=== PATIENT | female | born 1955 | race Caucasian/White ===

== ENCOUNTER 2017-03-09 17:19 | Inpatient (IN) | payer OTHER ==
[2017-03-09 17:31] VITALS: BP 138/95; PULSE 103; RESP 20; TEMP 97.7; O2SAT 96
[2017-03-09] MEDS ORDERED: SODIUM CHLOR 0.9% 1000 ML INJ 1,000 ML IV SCH (17:35)
[2017-03-09] MEDS ORDERED: ONDANSETRON HCL 4 MG/2 ML VIAL IVP ONE (17:45)
[2017-03-09] MEDS ORDERED: SODIUM CHLORIDE 0.9% FLUSH 10 ML FLUSH IV FLUSH PRN ×2 (17:45→20:00)
[2017-03-09] MEDS ORDERED: MORPHINE SULFATE 2 MG/ML INJ IV PUSH ONE (17:45)
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
[2017-03-09 18:18] LABS: AUTOMATED NEUTROPHIL # 21.2 TH/MM3 (1.8-7.7); BASOPHIL # 0.1 TH/MM3 (0-0.2); BASOPHIL % 0.3 % (0.0-2.0); EOSINOPHIL % 0.2 % (0.0-4.0); HEMATOCRIT 42.3 % (35.0-46.0); HEMOGLOBIN 14.4 GM/DL (11.6-15.3); LYMPH % 6.3 % (9.0-44.0); LYMPHOCYTE # 1.5 TH/MM3 (1.0-4.8); MEAN CELL VOLUME 87.1 FL (80.0-100.0); MEAN CORPUSCULAR HEMOGLOBIN 29.7 PG (27.0-34.0); MEAN CORPUSCULAR HGB CONC 34.1 % (32.0-36.0); MEAN PLATELET VOLUME 9.1 FL (7.0-11.0); MONO % 3.7 % (0.0-8.0); MONOCYTE # 0.9 TH/MM3 (0-0.9); NEUT % 89.5 % (16.0-70.0); PLATELET COUNT 295 TH/MM3 (150-450); RED BLOOD COUNT 4.86 MIL/MM3 (4.00-5.30); RED CELL DISTRIBUTION WIDTH 12.9 % (11.6-17.2); WHITE BLOOD COUNT 23.7 TH/MM3 (4.0-11.0)
[2017-03-09 18:26] LABS: PROTHROMBIN TIME - PATIENT 10.3 SEC (9.8-11.6)
[2017-03-09 18:51] LABS: ALT (GPT) 37 U/L (10-53)
[2017-03-09 18:53] LABS: ALKALINE PHOSPHATASE 132 U/L (45-117); TOTAL BILIRUBIN ADULT 0.4 MG/DL (0.2-1.0); TOTAL PROTEIN 7.5 GM/DL (6.4-8.2)
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
[2017-03-09 19:00] LABS: ALBUMIN 3.5 GM/DL (3.4-5.0); AST (GOT) 43 U/L (15-37); BICARBONATE 24.2 MEQ/L (21.0-32.0); BLOOD UREA NITROGEN 11 MG/DL (7-18); CALCIUM 8.4 MG/DL (8.5-10.1); CHLORIDE 105 MEQ/L (98-107); CREATININE 0.87 MG/DL (0.50-1.00); GLOMERULAR FILTRATION RATE 66 ML/MIN (>89); GLUCOSE,RANDOM 217 MG/DL (74-106); LIPASE 214 U/L (73-393); SODIUM (NA) 138 MEQ/L (136-145)
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
[2017-03-09 19:28] LABS: BILIRUBIN, URINE NEG (NEG); BLOOD, URINE MOD (NEG); GLUCOSE,URINE TRACE mg/dL (NEG); HYALINE CAST, URINE 3 /lpf (RARE); KETONE, URINE 10 mg/dL (NEG); MUCUS URINE FEW /lpf (OCC); NITRITE,URINE NEG (NEG); PH, URINE 5.5 (5.0-8.5); URINE COLOR YELLOW (YELLW/STRAW); URINE LEUKOCYTE ESTERASE NEG (NEG)
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
[2017-03-09 19:47] VITALS: BP 157/77; PULSE 97; RESP 16; O2SAT 94
[2017-03-09] MEDS ORDERED: MORPHINE SULFATE 2 MG/ML INJ IV PUSH PRN (20:00)
[2017-03-09] MEDS ORDERED: ONDANSETRON HCL 4 MG/2 ML VIAL IV PUSH PRN (20:00)
[2017-03-09] MEDS ORDERED: NALOXONE HCL 0.4 MG/ML AMP IV PUSH PRN ×2 (20:00→22:00)
[2017-03-09] MEDS ORDERED: oxyCODONE/ACETAMINOPHEN 5 MG/325 MG TAB PO PRN (20:00)
[2017-03-09] MEDS ORDERED: Post-op Orders (for Pharmacy) XX ONE (20:00)
[2017-03-09] MEDS: SODIUM CHLOR 0.9% 1000 ML INJ 1,000 ML IV SCH (20:17)
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
[2017-03-09 20:30] VITALS: BP 135/82; PULSE 98; RESP 24; TEMP 98.6; O2SAT 95
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
[2017-03-09] MEDS ORDERED: DOCUSATE SODIUM 100 MG CAP PO SCH (21:00)
[2017-03-09 22:00] VITALS: PULSE 98
[2017-03-09] MEDS: PCA - TOTAL MG MORPHINE DELIVERED PER SHIFT SCH (22:00)
[2017-03-09] MEDS ORDERED: LACTULOSE SYRUP 20 GM/30 ML CUP PO PRN (22:00)
[2017-03-09] MEDS ORDERED: diphenhydrAMINE HCL 50 MG/ML VIAL IV PUSH PRN (22:00)
[2017-03-09 22:29] VITALS: O2SAT 98
[2017-03-09] MEDS: MORPHINE SULFATE 30 MG/30 ML PCA IV SCH (22:51)
[2017-03-09] MEDS: FAMOTIDINE 20 MG TAB PO SCH (22:52)
[2017-03-09] MEDS: SODIUM CHLORIDE 0.9% FLUSH 10 ML FLUSH IV FLUSH SCH (22:53)
[2017-03-09] MEDS: METHOCARBAMOL 500 MG TAB PO SCH (22:53)
[2017-03-10] VITALS (12 sets, daily range): BP systolic 111–140; BP diastolic 56–85; PULSE 87–96; RESP 17–28; TEMP 97.2–98.3; O2SAT 94–99
[2017-03-10] MEDS: SODIUM CHLOR 0.9% 1000 ML INJ 1,000 ML IV SCH ×2 (04:53→15:46)
[2017-03-10 05:24] LABS: AUTOMATED NEUTROPHIL # 6.4 TH/MM3 (1.8-7.7); BASOPHIL % 0.4 % (0.0-2.0); EOSINOPHIL % 0.1 % (0.0-4.0); HEMATOCRIT 35.7 % (35.0-46.0); HEMOGLOBIN 12.2 GM/DL (11.6-15.3); LYMPH % 16.1 % (9.0-44.0); LYMPHOCYTE # 1.4 TH/MM3 (1.0-4.8); MEAN CELL VOLUME 87.2 FL (80.0-100.0); MEAN CORPUSCULAR HEMOGLOBIN 29.8 PG (27.0-34.0); MEAN CORPUSCULAR HGB CONC 34.2 % (32.0-36.0); MEAN PLATELET VOLUME 8.6 FL (7.0-11.0); MONO % 8.5 % (0.0-8.0); MONOCYTE # 0.7 TH/MM3 (0-0.9); NEUT % 74.9 % (16.0-70.0); PLATELET COUNT 206 TH/MM3 (150-450); RED BLOOD COUNT 4.09 MIL/MM3 (4.00-5.30); RED CELL DISTRIBUTION WIDTH 12.7 % (11.6-17.2); WHITE BLOOD COUNT 8.6 TH/MM3 (4.0-11.0)
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
[2017-03-10 05:40] LABS: BICARBONATE 26.4 MEQ/L (21.0-32.0); CALCIUM 7.6 MG/DL (8.5-10.1); CREATININE 0.81 MG/DL (0.50-1.00)
[2017-03-10] MEDS: PCA - TOTAL MG MORPHINE DELIVERED PER SHIFT SCH ×3 (06:00→21:47)
[2017-03-10] MEDS: METHOCARBAMOL 500 MG TAB PO SCH ×3 (06:23→21:49)
[2017-03-10] MEDS: RESP: ALBUTEROL 2.5 MG/IPRATROPIUM 0.5 MG NEB (SCH) NEB ×4 (08:20→21:01)
[2017-03-10] MEDS: FAMOTIDINE 20 MG TAB PO SCH ×2 (08:59→21:46)
[2017-03-10] MEDS: POLYETHYLENE GLYCOL 17 GM PKG PO SCH (08:59)
[2017-03-10] MEDS: DOCUSATE SODIUM 50 MG/SENNA 8.6 MG TAB PO SCH ×2 (08:59→21:46)
[2017-03-10] MEDS: SODIUM CHLORIDE 0.9% FLUSH 10 ML FLUSH IV FLUSH SCH ×2 (09:00→21:46)
[2017-03-10] MEDS: LIDOCAINE HCL 5% PATCH T-DERMAL SCH (09:00)
[2017-03-10] MEDS ORDERED: LIDOCAINE HCL 1% 50 ML VIAL INFIL ONE (09:30)
[2017-03-10] MEDS: MORPHINE SULFATE 30 MG/30 ML PCA IV SCH (11:22)
--- NOTE | 2017-03-10 11:24 | RADRPT ---
EXAM DATE/TIME: 03/10/2017 10:29 [facility] COMPARISON: CHEST SINGLE AP, March 10, 2017, 4:05. INDICATIONS : Left sided chest tube placement MEDICAL HISTORY : None. SURGICAL HISTORY : None. ENCOUNTER: Initial ACUITY: 1 day PAIN SCORE: Non-responsive. LOCATION: Left chest FINDINGS: Single AP view of the chest. Left-sided chest tubes in place. No evidence of pneumothorax. Increased diffuse left lung opacity. Cardiomediastinal silhouette unchanged. CONCLUSION: Study chest 2. No evidence of pneumothorax. Increased diffuse left lung opacity. Rajinder Sorensen MD on March 10, 2017 at 11:21 Board Certified Radiologist. This report was verified electronically.
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
--- NOTE | 2017-03-10 15:27 | EKG ---
Date Performed: 03/09/2017 Time Performed: 17:57:23 PTAGE: 61 years EKG: SINUS TACHYCARDIA POSSIBLE LEFT ATRIAL ENLARGEMENT ABNORMAL RHYTHM ECG NO PREVIOUS TRACING DOCTOR: Tao Reyes Interpretating Date/Time 03/10/2017 15:26:41
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
[2017-03-10] MEDS: REMOVE OLD PATCH T-DERMAL SCH (21:46)
--- NOTE | 2017-03-10 22:23 | MP ---
cc: ARIEL LAST MD DATE OF SURGERY 03/10/17 PREOPERATIVE DIAGNOSIS Left hemopneumothorax POSTOPERATIVE DIAGNOSIS Left hemopneumothorax PROCEDURE Left chest tube placement. SURGEON Jorge Last MD ANESTHESIA 1% Xylocaine ESTIMATED BLOOD LOSS Minimal. PROCEDURE IN DETAIL The patient prepped and draped usual fashion. Area infiltrated with 1% Xylocaine and incision made in mid axillary line about fifth intercostal space deepened down with a hemostat, lung blew up a little more and then 28-Uzbek chest tube placed. Suture place with 0-silk connected to Pleurovac. The patient tolerated the procedure well. A chest x-ray obtained. Ariel ACUÑA/ /11:20 AM /9:59 PM
[2017-03-11] VITALS (8 sets, daily range): BP systolic 136–171; BP diastolic 68–90; PULSE 92–101; RESP 18–19; TEMP 95.8–98.3; O2SAT 92–99
[2017-03-11] MEDS: SODIUM CHLOR 0.9% 1000 ML INJ 1,000 ML IV SCH (02:05)
--- NOTE | 2017-03-11 05:44 | RADRPT ---
EXAM DATE/TIME: 03/11/2017 04:29 [facility] COMPARISON: CHEST SINGLE AP, March 10, 2017, 10:29. INDICATIONS : Hemothorax. MEDICAL HISTORY : None. SURGICAL HISTORY : None. ENCOUNTER: Subsequent ACUITY: 3 days PAIN SCORE: Non-responsive. LOCATION: Bilateral chest FINDINGS: Left chest tube remains in place. No pneumothorax. Improved aeration of the left lung compared to the prior study. Right lung remains grossly clear. Heart size is stable. Bony structures are stable. CONCLUSION: Improved aeration left lung. No pneumothorax. Herbert Lui MD on March 11, 2017 at 5:40 Board Certified Radiologist. This report was verified electronically.
[2017-03-11] MEDS: METHOCARBAMOL 500 MG TAB PO SCH ×3 (05:48→22:48)
[2017-03-11] MEDS: PCA - TOTAL MG MORPHINE DELIVERED PER SHIFT SCH ×3 (05:48→22:49)
[2017-03-11 06:21] LABS: HEMOGLOBIN 10.8 GM/DL (11.6-15.3)
[2017-03-11] MEDS: FAMOTIDINE 20 MG TAB PO SCH ×2 (07:43→22:48)
[2017-03-11] MEDS: DOCUSATE SODIUM 50 MG/SENNA 8.6 MG TAB PO SCH ×2 (07:43→22:48)
[2017-03-11] MEDS: LIDOCAINE HCL 5% PATCH T-DERMAL SCH (07:43)
[2017-03-11] MEDS: SODIUM CHLORIDE 0.9% FLUSH 10 ML FLUSH IV FLUSH SCH ×2 (07:44→22:48)
[2017-03-11] MEDS: POLYETHYLENE GLYCOL 17 GM PKG PO SCH (07:44)
[2017-03-11] MEDS: RESP: ALBUTEROL 2.5 MG/IPRATROPIUM 0.5 MG NEB (SCH) NEB ×4 (08:00→19:57)
[2017-03-11] MEDS ORDERED: cloNIDine HCL 0.1 MG TAB PO ONE (08:30)
[2017-03-11 09:26] LABS: HEMOGLOBIN A1C 8.4 % (4.3-6.0)
--- NOTE | 2017-03-11 10:07 | PD.ORT.PN ---
Subjective Subjective Remarks Chest pain She was able to sit on edge of bed with therapist present Objective Vitals Vital Signs Date Time Temp Pulse Resp B/P (MAP) Pulse Ox O2 Delivery O2 Flow Rate FiO2 03/11/17 08:04 Nasal Cannula 2.00 03/11/17 07:45 96.2 101 19 171/90 (117) 92 03/11/17 05:48 18 03/11/17 03:45 98.3 97 18 159/81 (107) 93 03/11/17 00:15 97.3 98 18 139/68 (91) 93 03/10/17 21:47 19 03/10/17 21:01 95 Nasal Cannula 2.00 03/10/17 20:10 97.2 91 17 140/66 (90) 94 03/10/17 15:56 Nasal Cannula 4.00 03/10/17 15:56 98.3 96 18 135/78 (97) 97 03/10/17 14:00 98.1 91 28 126/66 (86) 97 03/10/17 14:00 91 03/10/17 14:00 22 03/10/17 12:00 91 03/10/17 12:00 91 28 128/67 (87) 97 03/10/17 11:22 22 I/O 03/10/17 03/10/17 03/10/17 03/11/17 03/11/17 03/11/17 07:00 15:00 23:00 07:00 15:00 23:00 Intake Total 1070 ml 120 ml 240 ml Output Total 400 ml 250 ml 518 ml 282 ml 20 ml Balance 670 ml -250 ml -398 ml -42 ml -20 ml Intake Oral 200 ml 120 ml 240 ml IV Total 870 ml Output Urine Total 400 ml 250 ml 400 ml 200 ml Stool Total 0 ml Chest Tube Drainage Total 118 ml 82 ml 20 ml # Bowel Movements 0 0 Result Diagram: 03/11/17 0528 03/10/17 0453 Imaging Last 24 hours Impressions Chest X-Ray 03/11/17 0600 Signed Impressions: Service Date/Time: Saturday, March 11, 2017 04:29 - CONCLUSION: Improved aeration left lung. No pneumothorax. Herbert Lui MD Objective Remarks Left clavicle Moderate swelling moderate tenderness elbow and wrist benign Pelvis tender posterior left scaral region NVI Assessment & Plan Problem List: (1) Closed left scapular fracture ICD Codes: S42.102A - Fracture of unspecified part of scapula, left shoulder, initial encounter for closed fracture Plan: Conservative management non weight bearing left upper extremity Monitor Follow up in office in 3 weeks (2) Closed left clavicular fracture ICD Codes: S42.002A - Fracture of unspecified part of left clavicle, initial encounter for closed fracture Plan: Conservative management non weight bearing left upper extremity Monitor Follow up in office in 3 weeks (3) Multiple pelvic fractures ICD Codes: S32.810A - Multiple fractures of pelvis with stable disruption of pelvic ring, initial encounter for closed fracture Status: Acute Qualifiers: Qualified Codes: S32.82XA - Multiple fractures of pelvis without disruption of pelvic ring, initial encounter for closed fracture Plan: Conservative management Weight bearing as tolerated Monitor Follow up in office in 3 weeks Tiago Wells MD Mar 11, 2017 10:07
[2017-03-11] MEDS: MORPHINE SULFATE 30 MG/30 ML PCA IV SCH (11:24)
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
[2017-03-11] MEDS ORDERED: MORPHINE SULFATE 30 MG/30 ML PCA IV SCH (14:15)
[2017-03-11] MEDS: ENOXAPARIN SODIUM 40 MG/0.4 ML SYRINGE SQ SCH (14:25)
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
[2017-03-11] MEDS: REMOVE OLD PATCH T-DERMAL SCH (22:48)
[2017-03-12] VITALS (7 sets, daily range): BP systolic 142–170; BP diastolic 83–92; PULSE 81–101; RESP 15–18; TEMP 96.3–97.9; O2SAT 91–98
[2017-03-12 06:17] LABS: HEMATOCRIT 32.9 % (35.0-46.0); HEMOGLOBIN 11.1 GM/DL (11.6-15.3); MEAN CELL VOLUME 87.1 FL (80.0-100.0); MEAN CORPUSCULAR HEMOGLOBIN 29.4 PG (27.0-34.0); MEAN CORPUSCULAR HGB CONC 33.7 % (32.0-36.0); MEAN PLATELET VOLUME 9.1 FL (7.0-11.0); PLATELET COUNT 189 TH/MM3 (150-450); RED BLOOD COUNT 3.78 MIL/MM3 (4.00-5.30); RED CELL DISTRIBUTION WIDTH 12.6 % (11.6-17.2); WHITE BLOOD COUNT 9.8 TH/MM3 (4.0-11.0)
[2017-03-12] MEDS: METHOCARBAMOL 500 MG TAB PO SCH ×3 (06:29→20:13)
[2017-03-12] MEDS: PCA - TOTAL MG MORPHINE DELIVERED PER SHIFT SCH (06:29)
--- NOTE | 2017-03-12 07:13 | RADRPT ---
EXAM DATE/TIME: 03/12/2017 05:23 [facility] COMPARISON: CHEST SINGLE AP, March 11, 2017, 4:29. INDICATIONS : Short of breath, left chest pain, evaluate for hemothorax MEDICAL HISTORY : hemothorax, clavicle fracture SURGICAL HISTORY : chest tube ENCOUNTER: Subsequent ACUITY: 4 - 6 days PAIN SCORE: 10/10 LOCATION: Bilateral chest FINDINGS: Left chest tube remains in place. No evidence of pneumothorax. Continues to be pulmonary venous conge stion in both lung bates. Otherwise no significant changes are demonstrated compared to the prior [facility]. The heart size is stable. Multiple stable left-sided rib fractures. Stable left clavicular fract ure. CONCLUSION: 1. No evidence of pneumothorax. 2. Pulmonary venous congestion. 3. No significant changes. Herbert Lui MD on March 12, 2017 at 7:11 Board Certified Radiologist. This report was verified electronically.
[2017-03-12] MEDS: FAMOTIDINE 20 MG TAB PO SCH ×2 (08:26→19:59)
[2017-03-12] MEDS: SODIUM CHLORIDE 0.9% FLUSH 10 ML FLUSH IV FLUSH SCH ×2 (08:26→19:57)
[2017-03-12] MEDS: LIDOCAINE HCL 5% PATCH T-DERMAL SCH (08:26)
[2017-03-12] MEDS: POLYETHYLENE GLYCOL 17 GM PKG PO SCH (08:27)
[2017-03-12] MEDS: DOCUSATE SODIUM 50 MG/SENNA 8.6 MG TAB PO SCH ×2 (08:27→19:58)
[2017-03-12] MEDS: RESP: ALBUTEROL 2.5 MG/IPRATROPIUM 0.5 MG NEB (SCH) NEB ×4 (08:51→20:00)
[2017-03-12] MEDS: metFORMIN HCL 500 MG TAB PO SCH ×2 (10:20→17:00)
[2017-03-12] MEDS ORDERED: ATENOLOL 25 MG TAB PO SCH (10:30)
[2017-03-12] MEDS ORDERED: cloNIDine HCL 0.1 MG TAB PO PRN (10:45)
[2017-03-12] MEDS ORDERED: MORPHINE SULFATE 4 MG/ML INJ IV PUSH PRN (11:30)
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
[2017-03-12] MEDS: ENOXAPARIN SODIUM 40 MG/0.4 ML SYRINGE SQ SCH (12:25)
[2017-03-12] MEDS: VALPROIC ACID 250 MG CAP PO SCH ×2 (12:25→19:58)
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
[2017-03-12] MEDS ORDERED: DEXTROSE 50% IN WATER 50 ML VIAL(D50) IV PUSH PRN ×2 (14:30→18:45)
[2017-03-12] MEDS ORDERED: GLUCAGON 1 MG/ML VIAL OTHER PRN ×2 (14:30→18:45)
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
--- NOTE | 2017-03-12 19:18 | PD.ORT.PN ---
Subjective Subjective Remarks Patient c/o rib and pelvic pain. Objective Vitals Vital Signs Date Time Temp Pulse Resp B/P (MAP) Pulse Ox O2 Delivery O2 Flow Rate FiO2 03/12/17 16:37 95 Nasal Cannula 2.00 03/12/17 15:37 96.3 84 16 170/91 (117) 95 03/12/17 11:17 96.6 96 15 167/89 (115) 91 03/12/17 08:51 93 Nasal Cannula 2.00 03/12/17 08:00 96.6 81 18 163/92 (115) 92 03/12/17 08:00 Nasal Cannula 2.00 03/12/17 06:29 18 03/12/17 04:25 96.9 93 18 147/87 (107) 96 03/12/17 00:10 97.9 101 18 142/83 (102) 98 03/11/17 22:49 18 03/11/17 20:45 98.1 96 18 150/82 (104) 99 03/11/17 19:59 98 Nasal Cannula 2.00 I/O 03/11/17 03/11/17 03/11/17 03/12/17 03/12/17 03/12/17 07:00 15:00 23:00 07:00 15:00 23:00 Intake Total 240 ml 550 ml 1440 ml 120 ml Output Total 282 ml 370 ml 430 ml 300 ml 55 ml Balance -42 ml 180 ml 1010 ml -180 ml -55 ml Intake Oral 240 ml 550 ml 240 ml 120 ml IV Total 1200 ml Output Urine Total 200 ml 350 ml 400 ml 300 ml Chest Tube Drainage Total 82 ml 20 ml 30 ml 0 ml 55 ml # Bowel Movements 0 0 0 1 Result Diagram: 03/12/17 0524 03/10/17 0453 Imaging Last 24 hours Impressions Chest X-Ray 03/11/17 0600 Signed Impressions: Service Date/Time: Saturday, March 11, 2017 04:29 - CONCLUSION: Improved aeration left lung. No pneumothorax. Herbert Lui MD Objective Remarks Left clavicle Moderate swelling moderate tenderness elbow and wrist benign Pelvis tender posterior left scaral region NVI Assessment & Plan Problem List: (1) Closed left scapular fracture ICD Codes: S42.102A - Fracture of unspecified part of scapula, left shoulder, initial encounter for closed fracture Plan: Conservative management non weight bearing left upper extremity Monitor Follow up in office in 3 weeks (2) Closed left clavicular fracture ICD Codes: S42.002A - Fracture of unspecified part of left clavicle, initial encounter for closed fracture Plan: Conservative management non weight bearing left upper extremity Monitor Follow up in office in 3 weeks (3) Multiple pelvic fractures ICD Codes: S32.810A - Multiple fractures of pelvis with stable disruption of pelvic ring, initial encounter for closed fracture Status: Acute Qualifiers: Qualified Codes: S32.82XA - Multiple fractures of pelvis without disruption of pelvic ring, initial encounter for closed fracture Plan: Pain management Conservative management Weight bearing as tolerated Monitor Follow up in office in 3 weeks Justin Garsia Mar 12, 2017 19:18
[2017-03-12] MEDS: ATENOLOL 25 MG TAB PO SCH (19:58)
[2017-03-12] MEDS: REMOVE OLD PATCH T-DERMAL SCH (20:13)
[2017-03-12] MEDS: INSULIN ASPART SUPPLEMENTAL SCALE SQ SCH (20:13)
[2017-03-13] VITALS (8 sets, daily range): BP systolic 120–153; BP diastolic 69–79; PULSE 63–73; RESP 16–20; TEMP 95.5–97.4; O2SAT 92–97
[2017-03-13] MEDS: METHOCARBAMOL 500 MG TAB PO SCH ×3 (06:01→20:48)
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
[2017-03-13] MEDS: RESP: ALBUTEROL 2.5 MG/IPRATROPIUM 0.5 MG NEB (SCH) NEB ×4 (07:44→19:50)
[2017-03-13] MEDS: INSULIN ASPART SUPPLEMENTAL SCALE SQ SCH ×4 (08:00→20:48)
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
[2017-03-13] MEDS: LIDOCAINE HCL 5% PATCH T-DERMAL SCH (09:00)
[2017-03-13] MEDS: SODIUM CHLORIDE 0.9% FLUSH 10 ML FLUSH IV FLUSH SCH ×2 (09:00→20:48)
[2017-03-13] MEDS: DOCUSATE SODIUM 50 MG/SENNA 8.6 MG TAB PO SCH ×2 (09:00→20:47)
[2017-03-13] MEDS: metFORMIN HCL 500 MG TAB PO SCH ×2 (09:00→17:25)
[2017-03-13] MEDS: POLYETHYLENE GLYCOL 17 GM PKG PO SCH (09:00)
[2017-03-13] MEDS: FAMOTIDINE 20 MG TAB PO SCH ×2 (09:00→20:48)
[2017-03-13] MEDS: ATENOLOL 25 MG TAB PO SCH ×2 (09:00→20:48)
[2017-03-13] MEDS: VALPROIC ACID 250 MG CAP PO SCH ×2 (09:00→20:47)
[2017-03-13] MEDS ORDERED: POLY17S PO (09:14)
[2017-03-13] MEDS ORDERED: PERI PO (09:14)
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
[2017-03-13] MEDS: ENOXAPARIN SODIUM 40 MG/0.4 ML SYRINGE SQ SCH (12:11)
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
[2017-03-13] MEDS ORDERED: IOHEXOL 350 MG/ML 10 ML VIAL (for RAD DIAG) IVCONTRAST ONE (16:52)
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
--- NOTE | 2017-03-13 17:57 | RADRPT ---
EXAM DATE/TIME: 03/13/2017 16:41 [facility] COMPARISON: US CAROTID ARTERIES, March 12, 2017, 14:13. INDICATIONS : Short of breath, carotid stenosis. IV CONTRAST: 79 cc Omnipaque 350 (iohexol) IV RADIATION DOSE: 26.55 CTDIvol (mGy) MEDICAL HISTORY : Hypertension. SURGICAL HISTORY : None. ENCOUNTER: Initial ACUITY: 1 day PAIN SCALE: 2/10 LOCATION: Bilateral cranial Elevated flow velocities and ICA/CCA ratios have been found to correlate with increased degrees of vessel stenosis, calculated as percentage of diameter relative to a normal segment of distal ICA/CCA. TECHNIQUE: Volumetric scanning was performed using a multirow detector CT scanner. The data was post processed with a variety of visualization algorithms including full-volume maximum intensity projection, multip lanar sliding thin-slab reformation, curved-planar reformation, and surface-rendering techniques. Us ing automated exposure control and adjustment of the mA and/or kV according to patient size, radiatio n dose was kept as low as reasonably achievable to obtain optimal diagnostic quality images. DICOM f ormat image data is available electronically for review and comparison. FINDINGS: At the lung apices, left effusion and contusion or atelectasis present with chest tube in place. Mini mal subpleural air. AORTIC ARCH: There is a three-vessel origin of the great vessels from the aorta. No evidence of ostial narrowing. RIGHT CAROTID: The common carotid artery is intact. The carotid bulb has a normal configuration without ulceration o r narrowing. The internal carotid artery lumen is smooth without stenosis. The external carotid clarissa ry is intact. LEFT CAROTID: Mild eccentric plaquing at the carotid bulb and left ICA origin with approximately 30% stenotic narro wing at the ICA origin. Beyond this, the ICA is normal in caliber and appearance to the skull base. VERTEBRALS: The vertebral arteries have a symmetric diameter. No stenotic lesions are seen. CONCLUSION: Mild left carotid bifurcation stenosis. No evidence of acute vascular injury. Zohaib Tarango MD on March 13, 2017 at 17:49 Board Certified Radiologist. This report was verified electronically.
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
[2017-03-13] MEDS: INSULIN DETEMIR 100 UNITS/ML VIAL SQ SCH (20:48)
[2017-03-13] MEDS: REMOVE OLD PATCH T-DERMAL SCH (20:49)
[2017-03-14 00:10] VITALS: BP 128/66; PULSE 75; RESP 18; TEMP 97; O2SAT 92
[2017-03-14 03:15] VITALS: BP 138/71; PULSE 64; RESP 18; TEMP 97; O2SAT 92
[2017-03-14] MEDS: METHOCARBAMOL 500 MG TAB PO SCH ×3 (05:25→20:37)
--- NOTE | 2017-03-14 06:49 | RADRPT ---
EXAM DATE/TIME: 03/14/2017 05:32 [facility] COMPARISON: CHEST SINGLE AP, March 13, 2017, 5:35. INDICATIONS : Shortness of breath. MEDICAL HISTORY : None. SURGICAL HISTORY : None. ENCOUNTER: Subsequent ACUITY: 1 week PAIN SCORE: Non-responsive. LOCATION: Bilateral chest FINDINGS: There is a left chest tube in place. A pneumothorax is not seen. The heart size is normal. There is i ncreased density at the bases bilaterally being worse on the left. There is a left clavicle fracture and left-sided rib fracture seen. CONCLUSION: 1. Left chest tube without a pneumothorax seen. 2. Findings there is consolidation or atelectasis being worse than the left. 3. Left clavicle and left rib fractures. Zohaib Sexton MD on March 14, 2017 at 6:45 Board Certified Radiologist. This report was verified electronically.
[2017-03-14 07:31] LABS: AUTOMATED NEUTROPHIL # 4.6 TH/MM3 (1.8-7.7); BASOPHIL % 0.2 % (0.0-2.0); EOSINOPHIL % 0.3 % (0.0-4.0); HEMATOCRIT 31.8 % (35.0-46.0); HEMOGLOBIN 10.7 GM/DL (11.6-15.3); LYMPH % 20.2 % (9.0-44.0); LYMPHOCYTE # 1.4 TH/MM3 (1.0-4.8); MEAN CELL VOLUME 86.2 FL (80.0-100.0); MEAN CORPUSCULAR HEMOGLOBIN 29.1 PG (27.0-34.0); MEAN CORPUSCULAR HGB CONC 33.8 % (32.0-36.0); MONO % 13.1 % (0.0-8.0); MONOCYTE # 0.9 TH/MM3 (0-0.9); NEUT % 66.2 % (16.0-70.0); PLATELET COUNT 296 TH/MM3 (150-450); RED BLOOD COUNT 3.68 MIL/MM3 (4.00-5.30); RED CELL DISTRIBUTION WIDTH 13.2 % (11.6-17.2)
[2017-03-14 07:52] LABS: BICARBONATE 24.6 MEQ/L (21.0-32.0); CREATININE 0.42 MG/DL (0.50-1.00); MAGNESIUM 2.2 MG/DL (1.5-2.5); PHOSPHORUS 2.5 MG/DL (2.5-4.9)
[2017-03-14 07:54] LABS: CHOLESTEROL/ HDL RATIO 4.73 RATIO
[2017-03-14 08:00] VITALS: BP 124/69; PULSE 69; RESP 18; TEMP 96.8; O2SAT 92
[2017-03-14] MEDS: INSULIN ASPART SUPPLEMENTAL SCALE SQ SCH ×4 (08:00→20:39)
[2017-03-14] MEDS: LIDOCAINE HCL 5% PATCH T-DERMAL SCH (08:07)
[2017-03-14] MEDS: VALPROIC ACID 250 MG CAP PO SCH ×2 (08:07→20:38)
[2017-03-14] MEDS: ATENOLOL 25 MG TAB PO SCH ×2 (08:07→20:38)
[2017-03-14] MEDS: POLYETHYLENE GLYCOL 17 GM PKG PO SCH (08:07)
[2017-03-14] MEDS: metFORMIN HCL 500 MG TAB PO SCH ×2 (08:07→18:00)
[2017-03-14] MEDS: FAMOTIDINE 20 MG TAB PO SCH ×2 (08:07→20:38)
[2017-03-14] MEDS: DOCUSATE SODIUM 50 MG/SENNA 8.6 MG TAB PO SCH ×2 (08:08→20:37)
[2017-03-14] MEDS: INSULIN DETEMIR 100 UNITS/ML VIAL SQ SCH ×2 (08:10→20:38)
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
[2017-03-14 12:00] VITALS: BP 126/71; PULSE 57; RESP 17; TEMP 95.4; O2SAT 92
[2017-03-14] MEDS: SODIUM CHLORIDE 0.9% FLUSH 10 ML FLUSH IV FLUSH SCH ×2 (12:00→20:38)
[2017-03-14] MEDS: ENOXAPARIN SODIUM 40 MG/0.4 ML SYRINGE SQ SCH (12:40)
[2017-03-14] MEDS: FUROSEMIDE 40 MG TAB PO SCH (12:40)
[2017-03-14 16:00] VITALS: BP 123/64; PULSE 58; RESP 17; TEMP 95.8; O2SAT 95
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
[2017-03-14] MEDS: GABAPENTIN 300 MG CAP PO SCH (18:00)
[2017-03-14 19:30] VITALS: BP 142/68; PULSE 63; RESP 18; TEMP 96.7; O2SAT 96
[2017-03-14] MEDS: REMOVE OLD PATCH T-DERMAL SCH (20:39)
[2017-03-15] VITALS (8 sets, daily range): BP systolic 117–133; BP diastolic 55–86; PULSE 61–65; RESP 17–18; TEMP 96.7–97.6; O2SAT 92–97
[2017-03-15] MEDS: METHOCARBAMOL 500 MG TAB PO SCH ×3 (05:49→22:57)
--- NOTE | 2017-03-15 07:42 | RADRPT ---
EXAM DATE/TIME: 03/15/2017 06:19 [facility] COMPARISON: CHEST SINGLE AP, March 14, 2017, 5:32. INDICATIONS : Short of breath, pain left chest, evaluate left chest tube MEDICAL HISTORY : clavicle fracture, left side rib fractures SURGICAL HISTORY : chest tube ENCOUNTER: Subsequent ACUITY: 1 week PAIN SCORE: 5/10 LOCATION: Left chest FINDINGS: Portable upright expiratory view of the chest demonstrates a normal-sized cardiac silhouette. Large b ore left chest tube remains present and no pneumothorax is visualized. There is a stable pleural-base d opacity superiorly. There is stable opacity at both lung bases. Bones and soft tissues have a stabl e appearance with stable displaced left mid clavicle fracture and left rib fractures. CONCLUSION: 1. Left chest tube remains present and no pneumothorax is visualized. There is a stable pleural-based opacity on the left superiorly. 2. Stable bibasilar opacity likely representing atelectasis at the right lung base and possible effus ion with consolidation and/or atelectasis at the left lung base. Zohaib Isaac MD on March 15, 2017 at 7:37 Board Certified Radiologist. This report was verified electronically.
[2017-03-15] MEDS: FAMOTIDINE 20 MG TAB PO SCH ×2 (07:55→20:19)
[2017-03-15] MEDS: metFORMIN HCL 500 MG TAB PO SCH ×2 (07:56→17:43)
[2017-03-15] MEDS: FUROSEMIDE 40 MG TAB PO SCH (07:56)
[2017-03-15] MEDS: GABAPENTIN 300 MG CAP PO SCH ×3 (07:56→17:42)
[2017-03-15] MEDS: ATENOLOL 25 MG TAB PO SCH ×2 (07:56→20:19)
[2017-03-15] MEDS: VALPROIC ACID 250 MG CAP PO SCH ×2 (07:57→20:19)
[2017-03-15] MEDS: SODIUM CHLORIDE 0.9% FLUSH 10 ML FLUSH IV FLUSH SCH ×2 (07:57→20:26)
[2017-03-15] MEDS: INSULIN ASPART SUPPLEMENTAL SCALE SQ SCH ×3 (08:00→21:00)
[2017-03-15] MEDS: POLYETHYLENE GLYCOL 17 GM PKG PO SCH (08:01)
[2017-03-15] MEDS: DOCUSATE SODIUM 50 MG/SENNA 8.6 MG TAB PO SCH ×2 (08:01→20:25)
[2017-03-15] MEDS: INSULIN DETEMIR 100 UNITS/ML VIAL SQ SCH ×2 (08:01→20:19)
[2017-03-15] MEDS: LIDOCAINE HCL 5% PATCH T-DERMAL SCH (08:01)
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
[2017-03-15] MEDS: ENOXAPARIN SODIUM 40 MG/0.4 ML SYRINGE SQ SCH (13:28)
[2017-03-15] MEDS: IBUPROFEN 600 MG TAB PO SCH ×2 (13:29→22:57)
[2017-03-15] MEDS: REMOVE OLD PATCH T-DERMAL SCH (20:26)
[2017-03-16 00:15] VITALS: BP 122/66; PULSE 60; RESP 17; TEMP 96.8; O2SAT 93
[2017-03-16 05:00] VITALS: BP 114/62; PULSE 64; RESP 18; TEMP 97.4; O2SAT 92
[2017-03-16] MEDS: IBUPROFEN 600 MG TAB PO SCH ×3 (05:29→21:41)
[2017-03-16] MEDS: METHOCARBAMOL 500 MG TAB PO SCH ×3 (05:29→21:41)
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
[2017-03-16 08:00] VITALS: BP 140/68; PULSE 61; RESP 16; TEMP 96; O2SAT 96
[2017-03-16] MEDS: INSULIN ASPART SUPPLEMENTAL SCALE SQ SCH ×4 (08:00→20:43)
[2017-03-16] MEDS: POLYETHYLENE GLYCOL 17 GM PKG PO SCH (09:44)
[2017-03-16] MEDS: ATENOLOL 25 MG TAB PO SCH ×2 (09:45→20:41)
[2017-03-16] MEDS: metFORMIN HCL 500 MG TAB PO SCH ×2 (09:45→17:17)
[2017-03-16] MEDS: LIDOCAINE HCL 5% PATCH T-DERMAL SCH (09:45)
[2017-03-16] MEDS: GABAPENTIN 300 MG CAP PO SCH ×3 (09:45→17:17)
[2017-03-16] MEDS: FUROSEMIDE 40 MG TAB PO SCH (09:46)
[2017-03-16] MEDS: DOCUSATE SODIUM 50 MG/SENNA 8.6 MG TAB PO SCH ×2 (09:46→20:41)
[2017-03-16] MEDS: VALPROIC ACID 250 MG CAP PO SCH ×2 (09:46→20:41)
[2017-03-16] MEDS: FAMOTIDINE 20 MG TAB PO SCH ×2 (09:46→20:41)
[2017-03-16] MEDS: SODIUM CHLORIDE 0.9% FLUSH 10 ML FLUSH IV FLUSH SCH ×2 (09:47→20:42)
[2017-03-16 12:00] VITALS: BP 130/66; PULSE 61; RESP 16; TEMP 97.3; O2SAT 95
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
[2017-03-16] MEDS: ENOXAPARIN SODIUM 40 MG/0.4 ML SYRINGE SQ SCH (13:05)
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
[2017-03-16 16:00] VITALS: BP 125/62; PULSE 65; RESP 16; TEMP 98.1; O2SAT 96
[2017-03-16 20:00] VITALS: BP 108/56; PULSE 64; RESP 17; TEMP 98.2; O2SAT 96
[2017-03-16] MEDS: INSULIN DETEMIR 100 UNITS/ML VIAL SQ SCH (20:42)
[2017-03-16] MEDS: REMOVE OLD PATCH T-DERMAL SCH (20:44)
[2017-03-17] VITALS: BP 112/57; PULSE 63; RESP 16; TEMP 97.4; O2SAT 96
[2017-03-17 04:08] LABS: AUTOMATED NEUTROPHIL # 4.7 TH/MM3 (1.8-7.7); BASOPHIL % 0.3 % (0.0-2.0); EOSINOPHIL # 0.1 TH/MM3 (0-0.4); HEMATOCRIT 29.7 % (35.0-46.0); HEMOGLOBIN 9.9 GM/DL (11.6-15.3); LYMPH % 24.9 % (9.0-44.0); LYMPHOCYTE # 1.9 TH/MM3 (1.0-4.8); MEAN CELL VOLUME 87.1 FL (80.0-100.0); MEAN CORPUSCULAR HEMOGLOBIN 29.1 PG (27.0-34.0); MEAN CORPUSCULAR HGB CONC 33.4 % (32.0-36.0); MEAN PLATELET VOLUME 8.6 FL (7.0-11.0); MONO % 9.9 % (0.0-8.0); MONOCYTE # 0.7 TH/MM3 (0-0.9); NEUT % 62.9 % (16.0-70.0); PLATELET COUNT 319 TH/MM3 (150-450); RED BLOOD COUNT 3.42 MIL/MM3 (4.00-5.30); RED CELL DISTRIBUTION WIDTH 13.5 % (11.6-17.2); WHITE BLOOD COUNT 7.5 TH/MM3 (4.0-11.0)
[2017-03-17 04:33] LABS: ALBUMIN 2.1 GM/DL (3.4-5.0); ALT (GPT) 23 U/L (10-53); AST (GOT) 25 U/L (15-37); BICARBONATE 32.8 MEQ/L (21.0-32.0); BLOOD UREA NITROGEN 15 MG/DL (7-18); CALCIUM 7.8 MG/DL (8.5-10.1); CHLORIDE 100 MEQ/L (98-107); CREATININE 0.48 MG/DL (0.50-1.00); GLOMERULAR FILTRATION RATE 132 ML/MIN (>89); GLUCOSE,RANDOM 79 MG/DL (74-106); SODIUM (NA) 139 MEQ/L (136-145)
[2017-03-17 04:35] LABS: ALKALINE PHOSPHATASE 62 U/L (45-117); TOTAL BILIRUBIN ADULT 0.4 MG/DL (0.2-1.0); TOTAL PROTEIN 5.4 GM/DL (6.4-8.2)
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
[2017-03-17] MEDS: METHOCARBAMOL 500 MG TAB PO SCH ×3 (06:19→21:17)
[2017-03-17] MEDS: IBUPROFEN 600 MG TAB PO SCH ×3 (06:20→21:16)
[2017-03-17 08:00] VITALS: BP 107/52; PULSE 57; RESP 18; TEMP 96; O2SAT 97
[2017-03-17] MEDS ORDERED: POTASSIUM CHLORIDE 10 MEQ CONTROLLED RELEASE TAB PO ONE (08:00)
[2017-03-17] MEDS: INSULIN ASPART SUPPLEMENTAL SCALE SQ SCH ×4 (08:00→21:00)
[2017-03-17] MEDS: GABAPENTIN 300 MG CAP PO SCH ×3 (08:34→17:04)
[2017-03-17] MEDS: LIDOCAINE HCL 5% PATCH T-DERMAL SCH (08:34)
[2017-03-17] MEDS: FAMOTIDINE 20 MG TAB PO SCH ×2 (08:35→21:17)
[2017-03-17] MEDS: FUROSEMIDE 40 MG TAB PO SCH (08:36)
[2017-03-17] MEDS: SODIUM CHLORIDE 0.9% FLUSH 10 ML FLUSH IV FLUSH SCH ×2 (08:36→21:18)
[2017-03-17] MEDS: VALPROIC ACID 250 MG CAP PO SCH ×2 (08:36→21:18)
[2017-03-17] MEDS: DOCUSATE SODIUM 50 MG/SENNA 8.6 MG TAB PO SCH ×2 (08:37→21:00)
[2017-03-17] MEDS: POLYETHYLENE GLYCOL 17 GM PKG PO SCH (08:37)
[2017-03-17] MEDS: ATENOLOL 25 MG TAB PO SCH ×2 (08:48→21:17)
[2017-03-17] MEDS: metFORMIN HCL 500 MG TAB PO SCH ×2 (09:00→17:04)
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
[2017-03-17 12:00] VITALS: BP 111/64; PULSE 59; RESP 17; TEMP 97.1; O2SAT 97
[2017-03-17] MEDS: ENOXAPARIN SODIUM 40 MG/0.4 ML SYRINGE SQ SCH (12:33)
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
[2017-03-17 16:00] VITALS: BP 106/50; PULSE 69; RESP 18; TEMP 98.2; O2SAT 95
[2017-03-17] MEDS ORDERED: POTASSIUM CHLORIDE 10 MEQ CAP PO ONE (16:00)
[2017-03-17 20:48] VITALS: BP 121/58; PULSE 66; RESP 18; TEMP 98.2; O2SAT 96
[2017-03-17] MEDS: REMOVE OLD PATCH T-DERMAL SCH (21:00)
[2017-03-17] MEDS: INSULIN DETEMIR 100 UNITS/ML VIAL SQ SCH (21:00)
[2017-03-18] VITALS: BP 100/50; PULSE 62; RESP 18; TEMP 98.2; O2SAT 95
[2017-03-18 04:00] VITALS: BP 108/59; PULSE 57; RESP 18; TEMP 96.6; O2SAT 98
[2017-03-18 05:22] LABS: BICARBONATE 32.8 MEQ/L (21.0-32.0); CREATININE 0.54 MG/DL (0.50-1.00)
[2017-03-18] MEDS: METHOCARBAMOL 500 MG TAB PO SCH ×3 (05:43→21:01)
[2017-03-18] MEDS: IBUPROFEN 600 MG TAB PO SCH ×3 (05:43→21:01)
--- NOTE | 2017-03-18 05:55 | RADRPT ---
EXAM DATE/TIME: 03/18/2017 05:05 [facility] COMPARISON: CHEST SINGLE AP, March 17, 2017, 4:45. INDICATIONS : Evaluate for pneumothorax- Left side chest tube MEDICAL HISTORY : Clavicle fracture, Rib fractures SURGICAL HISTORY : None. ENCOUNTER: Subsequent ACUITY: 1 week PAIN SCORE: 8/10 LOCATION: Bilateral chest FINDINGS: Stable left apical chest tube. No significant pneumothorax. Persistent small left pleural apical opac ity. Bilateral lower lobe airspace disease and probable trace pleural effusions. Cardiomediastinal co ntours are within normal limits. Redemonstration of multiple left-sided or fractures. CONCLUSION: 1. Stable left apical chest tube in place without significant pneumothorax. 2. Stable left apical pleural opacity. 3. Stable bilateral lower lung zone airspace disease and likely trace pleural effusions. Bob Og MD on March 18, 2017 at 5:52 Board Certified Radiologist. This report was verified electronically.
[2017-03-18 07:54] VITALS: BP 104/57; PULSE 61; RESP 17; TEMP 96.5; O2SAT 96
[2017-03-18] MEDS: INSULIN ASPART SUPPLEMENTAL SCALE SQ SCH ×4 (08:00→21:00)
[2017-03-18] MEDS: FUROSEMIDE 40 MG TAB PO SCH (08:41)
[2017-03-18] MEDS: FAMOTIDINE 20 MG TAB PO SCH ×2 (08:41→21:01)
[2017-03-18] MEDS: GABAPENTIN 300 MG CAP PO SCH ×3 (08:41→17:22)
[2017-03-18] MEDS: VALPROIC ACID 250 MG CAP PO SCH ×2 (08:41→21:01)
[2017-03-18] MEDS: metFORMIN HCL 500 MG TAB PO SCH ×2 (08:41→17:22)
[2017-03-18] MEDS: POLYETHYLENE GLYCOL 17 GM PKG PO SCH (08:41)
[2017-03-18] MEDS: ATENOLOL 25 MG TAB PO SCH ×2 (08:42→21:01)
[2017-03-18] MEDS: LIDOCAINE HCL 5% PATCH T-DERMAL SCH (08:42)
[2017-03-18] MEDS: DOCUSATE SODIUM 50 MG/SENNA 8.6 MG TAB PO SCH ×2 (08:42→21:00)
[2017-03-18] MEDS: SODIUM CHLORIDE 0.9% FLUSH 10 ML FLUSH IV FLUSH SCH ×2 (08:42→21:02)
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
[2017-03-18 11:48] VITALS: BP 112/59; PULSE 64; RESP 18; TEMP 96.8; O2SAT 95
[2017-03-18] MEDS: ENOXAPARIN SODIUM 40 MG/0.4 ML SYRINGE SQ SCH (14:37)
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
[2017-03-18 15:40] VITALS: BP 114/58; PULSE 71; RESP 18; TEMP 96.9; O2SAT 96
[2017-03-18 20:23] VITALS: BP 126/59; PULSE 78; RESP 18; TEMP 96.6; O2SAT 98
[2017-03-18] MEDS: REMOVE OLD PATCH T-DERMAL SCH (21:00)
[2017-03-18] MEDS: INSULIN DETEMIR 100 UNITS/ML VIAL SQ SCH (21:00)
[2017-03-19] VITALS (7 sets, daily range): BP systolic 103–140; BP diastolic 52–69; PULSE 61–74; RESP 17–18; TEMP 97.5–98.7; O2SAT 94–97
[2017-03-19] MEDS: METHOCARBAMOL 500 MG TAB PO SCH ×3 (05:48→20:06)
[2017-03-19] MEDS: IBUPROFEN 600 MG TAB PO SCH ×3 (05:48→20:11)
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
[2017-03-19] MEDS: INSULIN ASPART SUPPLEMENTAL SCALE SQ SCH ×4 (08:00→20:05)
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
[2017-03-19] MEDS: ATENOLOL 25 MG TAB PO SCH ×2 (08:57→20:06)
[2017-03-19] MEDS: GABAPENTIN 300 MG CAP PO SCH ×3 (08:57→18:05)
[2017-03-19] MEDS: metFORMIN HCL 500 MG TAB PO SCH ×2 (08:57→18:05)
[2017-03-19] MEDS: FAMOTIDINE 20 MG TAB PO SCH ×2 (08:58→20:06)
[2017-03-19] MEDS: FUROSEMIDE 40 MG TAB PO SCH (08:58)
[2017-03-19] MEDS: VALPROIC ACID 250 MG CAP PO SCH (08:58)
[2017-03-19] MEDS: POLYETHYLENE GLYCOL 17 GM PKG PO SCH (09:00)
[2017-03-19] MEDS: SODIUM CHLORIDE 0.9% FLUSH 10 ML FLUSH IV FLUSH SCH ×2 (09:00→20:06)
[2017-03-19] MEDS: DOCUSATE SODIUM 50 MG/SENNA 8.6 MG TAB PO SCH ×2 (09:00→20:06)
[2017-03-19] MEDS ORDERED: METF500 PO (11:23)
[2017-03-19] MEDS ORDERED: ENOX40P SQ (11:23)
[2017-03-19] MEDS ORDERED: ATEN25TA PO (11:23)
[2017-03-19] MEDS ORDERED: NEUR300C PO (11:23)
[2017-03-19] MEDS ORDERED: LEVEMIR SQ (11:23)
[2017-03-19] MEDS ORDERED: METH500T3 PO (11:23)
[2017-03-19] MEDS ORDERED: FURO40TA PO (11:23)
[2017-03-19] MEDS ORDERED: PERC5TAB12 PO (11:23)
[2017-03-19] MEDS: LIDOCAINE HCL 5% PATCH T-DERMAL SCH (12:03)
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
[2017-03-19] MEDS ORDERED: NAME5TAB2 PO (12:30)
[2017-03-19] MEDS: ENOXAPARIN SODIUM 40 MG/0.4 ML SYRINGE SQ SCH (13:29)
[2017-03-19] MEDS: MEMANTINE HCL 5 MG TAB PO SCH (14:00)
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
[2017-03-19] MEDS: INSULIN DETEMIR 100 UNITS/ML VIAL SQ SCH (20:05)
[2017-03-19] MEDS: REMOVE OLD PATCH T-DERMAL SCH (20:08)
[2017-03-20] MEDS: IBUPROFEN 600 MG TAB PO SCH ×2 (05:43→14:30)
[2017-03-20] MEDS: METHOCARBAMOL 500 MG TAB PO SCH ×2 (05:43→14:29)
[2017-03-20 08:00] VITALS: BP 135/74; PULSE 68; RESP 17; TEMP 98.1; O2SAT 92
[2017-03-20] MEDS: INSULIN ASPART SUPPLEMENTAL SCALE SQ SCH ×2 (08:00→12:00)
[2017-03-20] MEDS: metFORMIN HCL 500 MG TAB PO SCH (08:31)
[2017-03-20] MEDS: DOCUSATE SODIUM 50 MG/SENNA 8.6 MG TAB PO SCH (08:31)
[2017-03-20] MEDS: ATENOLOL 25 MG TAB PO SCH (08:31)
[2017-03-20] MEDS: FAMOTIDINE 20 MG TAB PO SCH (08:31)
[2017-03-20] MEDS: MEMANTINE HCL 5 MG TAB PO SCH (08:32)
[2017-03-20] MEDS: GABAPENTIN 300 MG CAP PO SCH ×2 (08:32→12:23)
[2017-03-20] MEDS: FUROSEMIDE 40 MG TAB PO SCH (08:32)
[2017-03-20] MEDS: SODIUM CHLORIDE 0.9% FLUSH 10 ML FLUSH IV FLUSH SCH (08:32)
[2017-03-20] MEDS: POLYETHYLENE GLYCOL 17 GM PKG PO SCH (08:32)
[2017-03-20] MEDS: LIDOCAINE HCL 5% PATCH T-DERMAL SCH (08:33)
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
[2017-03-20 12:00] VITALS: BP 108/60; PULSE 61; RESP 18; TEMP 98.1; O2SAT 93
[2017-03-20] MEDS: ENOXAPARIN SODIUM 40 MG/0.4 ML SYRINGE SQ SCH (12:23)
[2017-03-20 16:25] VITALS: BP 117/62; PULSE 75; RESP 18; TEMP 98.4; O2SAT 93
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
== END 2017-03-20 17:49 | DRG 964 ==
LOC: NEPC 17:19 → NEDA 19:44 → N03A 20:26 → N06A 03-10 15:31
PROVIDERS: ADMIT Surgery; ATTEND Surgery
PROC: 0W9B30Z Drainage of Left Pleural Cavity with Drainage Device, Percutaneous Approach (ICD-10-PCS; principal; 2017-03-10)
DX: S27.2XXA Traumatic hemopneumothorax, initial encounter (principal); S22.42XA Multiple fractures of ribs, left side, initial encounter for closed fracture; S32.19XA Other fracture of sacrum, initial encounter for closed fracture; S32.511A Fracture of superior rim of right pubis, initial encounter for closed fracture; S27.321A Contusion of lung, unilateral, initial encounter; E11.65 Type 2 diabetes mellitus with hyperglycemia; S06.0X9A Concussion with loss of consciousness of unspecified duration, initial encounter; S02.31XA Fracture of orbital floor, right side, initial encounter for closed fracture; S02.40DA Maxillary fracture, left side, initial encounter for closed fracture; S32.512A Fracture of superior rim of left pubis, initial encounter for closed fracture; J98.11 Atelectasis; T79.7XXA Traumatic subcutaneous emphysema, initial encounter; S42.022A Displaced fracture of shaft of left clavicle, initial encounter for closed fracture; S42.112A Displaced fracture of body of scapula, left shoulder, initial encounter for closed fracture; F17.210 Nicotine dependence, cigarettes, uncomplicated; J44.9 Chronic obstructive pulmonary disease, unspecified; I10 Essential (primary) hypertension; F01.50 Vascular dementia, unspecified severity, without behavioral disturbance, psychotic disturbance, mood disturbance, and anxiety; R41.2 Retrograde amnesia; I65.23 Occlusion and stenosis of bilateral carotid arteries; R09.02 Hypoxemia; R15.9 Full incontinence of feces; R19.7 Diarrhea, unspecified; V47.5XXA Car driver injured in collision with fixed or stationary object in traffic accident, initial encounter; Y92.410 Unspecified street and highway as the place of occurrence of the external cause
CPT/HCPCS: 70450; 70486; 70498; 71045; 71250; 72125; 72170; 74176; 80048; 80053; 80061; 81001; 82948; 83036; 83690; 83735; 84100; 85014; 85018; 85025; 85027; 85610; 85730; 86850; 86900; 86901; 87493; 93005; 93880; 94150; 94640; 94664; 94667; 94668; 96361; 96374; 96375; J1650; J1815; J2270; J2405; J7030; Q9967